=== PATIENT | female | born 1965 | race Two or more races ===

== ENCOUNTER 2018-03-08 07:26 | Outpatient (CLI) | payer OTHER ==
[~2018-03-08 07:26] MED LIST: COZAAR50 MG; GLUCOTROL10 MG; LEVSIN/SL0.125 MG PO; METFORMIN HCL500 MG; PROTONIX40 MG PO
== END 2018-03-08 07:29 | disposition home or self-care (01) ==
LOC: SONOGRAMA 07:26
DX: E04.2 Nontoxic multinodular goiter (principal)

== ENCOUNTER 2020-08-03 22:21 | Emergency (ER) | payer OTHER ==
[~2020-08-03] VITALS: Ht 157.5 cm; Wt 72.6 kg
== END 2020-08-04 03:36 | disposition home or self-care (01) ==
LOC: ER 22:21 → CPU-OBS 22:31 → ER 08-04 03:36
DX: R07.89 Other chest pain (principal); Z20.822 Contact with and (suspected) exposure to COVID-19
CPT/HCPCS: G0378; G0379; 93005

== ENCOUNTER 2022-12-12 18:08 | Emergency (ER) | payer OTHER ==
[~2022-12-12] VITALS: Ht 157.5 cm; Wt 72.6 kg
[2022-12-12] MEDS ORDERED: CHILDREN'S ASPI81 MG (18:49)
[2022-12-12] MEDS ORDERED: PLAVIX75 MG PO (18:49)
[2022-12-12] MEDS ORDERED: ENTRESTO 24 MG1 EACH PO (18:49)
[2022-12-12] MEDS ORDERED: JARDIANCE10 MG (18:50)
== END 2022-12-13 05:28 | disposition home or self-care (01) ==
LOC: ER 18:08
DX: R10.2 Pelvic and perineal pain (principal); Z88.8 Allergy status to other drugs, medicaments and biological substances; E11.9 Type 2 diabetes mellitus without complications; Z79.84 Long term (current) use of oral hypoglycemic drugs; I10 Essential (primary) hypertension; K80.20 Calculus of gallbladder without cholecystitis without obstruction